=== PATIENT | female | born 1980 | race Caucasian/White ===

== ENCOUNTER 2016-11-26 14:07 | Emergency (ER) | payer OTHER ==
[~2016-11-26] VITALS: Ht 162.5 cm; Wt 72.6 kg
[~2016-11-26 14:07] MED LIST: AUGMENTIN 875875 MG PO; CELEXA20 MG PO; HYDROCODONE BIT1 T11 PO; LAMICTAL ODT50 MG PO; LAMICTAL25 MG PO; SEROQUEL25 MG PO; SYNTHROID,LEV100 MCG PO; VIT D2 PO; WELLBUTRIN75 MG PO; ZOFRAN4 MG PO
[2016-11-26] MEDS ORDERED: IRON325 M2 PO (14:12)
[2016-11-26] MEDS ORDERED: AMBIEN5 MG PO (14:13)
[2016-11-26] MEDS ORDERED: ATIVAN0.5 MG PO (14:13)
[2016-11-26] MEDS ORDERED: CYCLOBENZAPRINE10 MG PO (16:20)
[2016-11-26] MEDS ORDERED: PREDNISONE50 MG PO (16:20)
== END 2016-11-26 16:24 | disposition home or self-care (01) ==
LOC: ED 14:07
DX: S00.83XA Contusion of other part of head, initial encounter (principal); S14.109A Unspecified injury at unspecified level of cervical spinal cord, initial encounter; F17.200 Nicotine dependence, unspecified, uncomplicated; W10.9XXA Fall (on) (from) unspecified stairs and steps, initial encounter; Y93.89 Activity, other specified; Y92.9 Unspecified place or not applicable; Y99.9 Unspecified external cause status

== ENCOUNTER → 2017-02-25 | Day surgery (SDC) | payer OTHER ==
[2017-02-20 09:23] VITALS: BP 120/67
[2017-02-25] VITALS (9 sets, daily range): BP systolic 108–148; BP diastolic 46–87
[~2017-02-25] VITALS: Ht 162.5 cm; Wt 74.8 kg
[~2017-02-25] MED LIST changes: +AMBIEN5 MG PO; +ATIVAN0.5 MG PO; +CYCLOBENZAPRINE10 MG PO; +IRON325 M2 PO; +LEVAQUIN500 M2 PO; +PERCOCET 325 MG1 TA7 PO; +PREDNISONE50 MG PO; +SYNTHROID,LEVO75 MCG PO; +VITAMIN D5000 UNIT PO
--- NOTE | ~2017-02-25 | O ---
[place], [place] OPERATIVE NOTE NAME: GILLIAN KHAN UNIT #: [id number] ROOM: DOCTOR: RAKESH DUENAS MD BIRTHDATE: [birth year] DOS: 02/25/2017 PREOPERATIVE DIAGNOSES: Chronic maxillary sinusitis, chronic ethmoid sinusitis. POSTOPERATIVE DIAGNOSES: Chronic maxillary sinusitis, chronic ethmoid sinusitis. PROCEDURES: Bilateral nasal endoscopy with maxillary antrostomy and bilateral anterior ethmoidectomy. SURGEON: Rakesh Duenas MD ANESTHESIA: General endotracheal. ESTIMATED BLOOD LOSS: 100 mL. COMPLICATIONS: None. PACKING: Merocel x 2. INDICATIONS: The patient is a 37-year-old white female with chronic sinusitis, who has requested endoscopic sinus surgery. She was taken to the operating room for bilateral maxillary antrostomy and bilateral anterior ethmoidectomy. DESCRIPTION OF PROCEDURE: Following induction of general endotracheal anesthesia, the patient was positioned supine on the OR table and draped in the standard fashion for sinus surgery. Both nasal cavities were decongested with topical 4% cocaine pledgets. Approximately 10 mL of 1% lidocaine with 1:100 epinephrine was injected into the middle turbinate and lateral nasal wall bilaterally. The left nasal cavity was addressed first. Using 0-degree endoscope, the patient was noted to have ostiomeatal complex obstruction and the uncinate process was taken down using a Hood elevator and endoscopic upbiting forceps. The natural sinus ostia was identified and enlarged using a curved suction. Some thickened mucosal tissue was removed from the natural sinus ostia. Next, the anterior ethmoidectomy was performed using endoscopic instrumentation. The procedure was repeated on the right nasal cavity without difficulty. There was no significant bleeding at the end of the case. Estimated blood loss was 100 mL. The nasal cavities were packed with Merocel bilaterally. The patient was awakened, extubated and transported to PACU in satisfactory condition. [place], [place] OPERATIVE NOTE NAME: GILLIAN KHAN UNIT #: [id number] ROOM: DOCTOR: RAKESH DUENAS MD BIRTHDATE: [birth year] RAKESH DUENAS MD CM:RAVIECORD:OPERATIVE NOTE 1109 1135 RAKESH DUENAS MD 02/26/17 1136 interface
== END | disposition home or self-care (01) ==
LOC: SDC 01-21 08:45
DX: J32.2 Chronic ethmoidal sinusitis (principal); J32.0 Chronic maxillary sinusitis; F32.9 Major depressive disorder, single episode, unspecified; E03.9 Hypothyroidism, unspecified; Z87.01 Personal history of pneumonia (recurrent); F41.9 Anxiety disorder, unspecified; Z83.3 Family history of diabetes mellitus; Z82.3 Family history of stroke; Z82.49 Family history of ischemic heart disease and other diseases of the circulatory system; F17.210 Nicotine dependence, cigarettes, uncomplicated

== ENCOUNTER → 2017-04-18 | Outpatient (CLI) | payer OTHER ==
[2017-04-18 16:29] LABS: BASO # 0.1 10*3/uL (0.0-0.1); BASO % 0.7 % (0.0-1.0); EOS # 0.2 10*3/uL (0.0-0.4); HEMATOCRIT 41.5 % (37.0-47.0); LYMPH # 2.8 10*3/uL (1.3-4.4); LYMPH % 27.9 % (27.0-41.0); MEAN CELL VOLUME 89.4 fl (81.0-99.0); MEAN CORPUSCULAR HGB 30.2 pg (27.0-31.0); MEAN CORPUSCULAR HGB CONC 33.7 g/dl (33.0-37.0); MONO # 0.6 10*3/uL (0.1-1.0); MONO % 5.8 % (3.0-9.0); NEUT # 6.4 10*3/uL (2.3-7.9); NEUT % 63.3 % (47.0-73.0); PLATELET COUNT AUTOMATED 280 10*3/uL (130-400); RED BLOOD COUNT 4.64 10*6/uL (4.10-5.10); RED CELL DISTRI WIDTH 13.4 % (0-14.5); WHITE BLOOD COUNT 10.1 10*3/uL (4.8-10.8)
== END ==
LOC: LAB 16:19
PROVIDERS: Nurse Practitioner Family
DX: E03.9 Hypothyroidism, unspecified (principal)

== ENCOUNTER → 2017-10-13 | Outpatient (CLI) | payer OTHER ==
[2017-10-13 20:40] LABS: BASO # 0.1 10*3/uL (0.0-0.1); BASO % 0.8 % (0.0-1.0); EOS # 0.3 10*3/uL (0.0-0.4); EOS % 2.7 % (1.0-4.0); HEMATOCRIT 39.9 % (37.0-47.0); HEMOGLOBIN 13.3 g/dl (12.0-16.0); LYMPH # 3.3 10*3/uL (1.3-4.4); LYMPH % 30.4 % (27.0-41.0); MEAN CELL VOLUME 87.9 fl (81.0-99.0); MEAN CORPUSCULAR HGB 29.3 pg (27.0-31.0); MEAN CORPUSCULAR HGB CONC 33.3 g/dl (33.0-37.0); MEAN PLATELET VOLUME 10.4 fl (9.6-12.3); MONO # 0.7 10*3/uL (0.1-1.0); MONO % 6.2 % (3.0-9.0); NEUT # 6.4 10*3/uL (2.3-7.9); NEUT % 59.6 % (47.0-73.0); PLATELET COUNT AUTOMATED 265 10*3/uL (130-400); RED BLOOD COUNT 4.54 10*6/uL (4.10-5.10); WHITE BLOOD COUNT 10.8 10*3/uL (4.8-10.8)
[2017-10-13 20:58] LABS: ALBUMIN 3.8 gm/dl (3.1-4.5); ALKALINE PHOSPHATASE 66 U/L (45-117); BUN 13 mg/dl (7-24); CHLORIDE 105 mmol/L (98-107); CHOLESTEROL 249 mg/dL (<200); CREATININE 0.72 mg/dL (0.55-1.02); HDL CHOLESTEROL 48 mg/dl (40-60); LDL CHOLESTEROL 165 mg/dL (9-159); POTASSIUM 3.5 mmol/L (3.5-5.1); SGOT/AST 11 IU/L (3-35); SGPT/ALT 23 U/L (12-78); SODIUM 141 mmol/L (136-145); TOTAL PROTEIN 7.5 gm/dL (6.4-8.2); TRIGLYCERIDES 182 mg/dl (<150); VLDL CHOLESTEROL 36 mg/dL (6-40)
== END | disposition home or self-care (01) ==
LOC: LAB 20:12
PROVIDERS: Nurse Practitioner Family
DX: E03.9 Hypothyroidism, unspecified (principal); F41.9 Anxiety disorder, unspecified

== ENCOUNTER 2017-11-25 22:04 | Emergency (ER) | payer OTHER ==
[~2017-11-25] VITALS: Ht 162.5 cm; Wt 77.1 kg
[2017-11-25 22:44] LABS: BASO # 0.1 10*3/uL (0.0-0.1); BASO % 0.9 % (0.0-1.0); EOS # 0.4 10*3/uL (0.0-0.4); HEMATOCRIT 37.9 % (37.0-47.0); HEMOGLOBIN 12.4 g/dl (12.0-16.0); LYMPH % 34.1 % (27.0-41.0); MEAN CELL VOLUME 86.9 fl (81.0-99.0); MEAN CORPUSCULAR HGB 28.4 pg (27.0-31.0); MEAN CORPUSCULAR HGB CONC 32.7 g/dl (33.0-37.0); MEAN PLATELET VOLUME 10.3 fl (9.6-12.3); MONO # 0.7 10*3/uL (0.1-1.0); MONO % 7.5 % (3.0-9.0); NEUT # 4.6 10*3/uL (2.3-7.9); NEUT % 53.2 % (47.0-73.0); PLATELET COUNT AUTOMATED 285 10*3/uL (130-400); RED BLOOD COUNT 4.36 10*6/uL (4.10-5.10); RED CELL DISTRI WIDTH 13.6 % (0-14.5); WHITE BLOOD COUNT 8.7 10*3/uL (4.8-10.8)
[2017-11-25 23:00] LABS: ACT PARTIAL THROMBO TIME 28.3 SECONDS (20.8-31.5)
[2017-11-25 23:03] LABS: ALBUMIN 3.9 gm/dl (3.1-4.5); ALKALINE PHOSPHATASE 72 U/L (45-117); BUN 13 mg/dl (7-24); CHLORIDE 103 mmol/L (98-107); CREATININE 0.63 mg/dL (0.55-1.02); POTASSIUM 3.5 mmol/L (3.5-5.1); SGOT/AST 21 IU/L (3-35); SGPT/ALT 29 U/L (12-78); SODIUM 137 mmol/L (136-145); TOTAL PROTEIN 7.3 gm/dL (6.4-8.2)
[2017-11-25 23:24] LABS: TROPONIN I < 0.015 ng/ml (<0.045)
[2017-11-26] MEDS ORDERED: ZITHROMAX250 MG PO (00:16)
== END 2017-11-26 01:14 | disposition home or self-care (01) ==
LOC: ED 22:04
PROVIDERS: Emergency Medicine Emergency Medical Services
DX: J18.9 Pneumonia, unspecified organism (principal); J32.9 Chronic sinusitis, unspecified; F17.200 Nicotine dependence, unspecified, uncomplicated; Z79.899 Other long term (current) drug therapy

== ENCOUNTER → 2017-12-23 | Outpatient (CLI) | payer OTHER ==
[~2017-12-23] MED LIST changes: +ZITHROMAX250 MG PO
[2017-12-23 19:05] LABS: BASO # 0.1 10*3/uL (0.0-0.1); BASO % 1.2 % (0.0-1.0); EOS # 0.4 10*3/uL (0.0-0.4); EOS % 4.8 % (1.0-4.0); HEMATOCRIT 38.5 % (37.0-47.0); HEMOGLOBIN 12.4 g/dl (12.0-16.0); LYMPH % 37.1 % (27.0-41.0); MEAN CELL VOLUME 85.7 fl (81.0-99.0); MEAN CORPUSCULAR HGB 27.6 pg (27.0-31.0); MEAN CORPUSCULAR HGB CONC 32.2 g/dl (33.0-37.0); MONO # 0.6 10*3/uL (0.1-1.0); NEUT # 4.1 10*3/uL (2.3-7.9); NEUT % 49.7 % (47.0-73.0); PLATELET COUNT AUTOMATED 291 10*3/uL (130-400); RED BLOOD COUNT 4.49 10*6/uL (4.10-5.10); RED CELL DISTRI WIDTH 13.8 % (0-14.5); WHITE BLOOD COUNT 8.2 10*3/uL (4.8-10.8)
== END | disposition home or self-care (01) ==
LOC: LAB 18:26
PROVIDERS: Nurse Practitioner Primary Care
DX: I10 Essential (primary) hypertension (principal); E66.09 Other obesity due to excess calories

== ENCOUNTER 2018-02-09 22:25 | Inpatient (IN) | payer OTHER ==
[~2018-02-09] VITALS: Ht 162.5 cm; Wt 77.3 kg
--- NOTE | ~2018-02-09 | O ---
[place], [place] OPERATIVE NOTE NAME: GILLIAN KHAN UNIT #: [id number] ROOM: 506 DOCTOR: CHRISTOPHER MORENO MD BIRTHDATE: [birth year] DOS: 02/11/2018 GASTROENDOSCOPIC REPORT INDICATIONS: A 37-year-old patient who presented with chief complaint of hematemesis, nausea, vomiting, and eventually seek medical attention and undergone investigation of the above. PROCEDURE: Today's procedure part of investigation is panendoscopy plus biopsy. PREMEDICATION: Versed and Diprivan. SCOPE: Olympus forward-viewing gastroscope Q10 video. REPORT: After putting the patient in left lateral position and application of lubricant to the scope, the scope was introduced. Thereafter, under direct visualization, advanced through the length of esophagus without difficulty. Gastric pouch was entered. Multiple antral erosions secondary to nonsteroidal anti-inflammatory was seen. Duodenum consistent with duodenitis in bulb and second part, photographed. Biopsies from antrum was obtained. Air was suctioned out after GI reflection to cardia and evaluation of the proximal stomach, which is consistent also with gastritis. The patient tolerated the procedure well. IMPRESSION: Multiple antral erosions secondary to nonsteroidal anti-inflammatory, duodenitis, gastritis. PLAN AND DISCUSSION: Protonix 40 mg 1 every day. The patient advised to abstain from avid intake of nonsteroidal anti-inflammatory limiting only small mg to p.r.n. use as well was advised to abstain from smoking and follow up as outpatient. Thank you very much indeed for your kind referral. [place], [place] OPERATIVE NOTE NAME: GILLIAN KHAN UNIT #: [id number] ROOM: 506 DOCTOR: CHRISTOPHER MORENO MD BIRTHDATE: [birth year] CHRISTOPHER MORENO MD CM:OPRECORD:OPERATIVE NOTE 1519 1639 CHRISTOPHER MORENO MD 02/11/18 1639 interface
--- NOTE | ~2018-02-09 | CON ---
[place], [place] REPORT OF CONSULTATION NAME: GILLIAN KHAN UNIT #: [id number] ROOM: 506 DOCTOR: TIFFANIE GARCIASCHRISTOPHER BIRTHDATE: [birth year] DOS: 02/11/2018 HISTORY OF PRESENT ILLNESS: A 37-year-old patient who presented with chief complaint of nausea, epigastric distress and eventually hematemesis and I have been called in this regard for assessment of the above. Comprehensive metabolic panel, GFR within normal limits. Liver function test normal. Electrolytes balanced. CBC initially, H and H of 11 and 35 with platelet count of 278. Troponin was 0.05, which is within normal limits. Comprehensive metabolic panel was reassessed again, no acute findings otherwise. Her urine negative. PAST MEDICAL HISTORY: Anxiety, sinusitis, anemia in the past. PAST SURGICAL HISTORY: ENT management, lower back surgery. SOCIAL HISTORY: Smoker, nonalcohol consumer. FAMILY HISTORY: Noncontributory except diabetes, coronary artery disease, unrelated to her presentation. ALLERGIES: No known medications. MEDICATIONS: Medication list has been reviewed including iron supplementation as well as taken 4-8 tablets of nonsteroidal anti-inflammatory [id number] product. REVIEW OF SYSTEMS: HEENT: Denies double vision or blurred vision. RESPIRATORY: Shortness of breath. CARDIOVASCULAR: Denies chest pain. DIGESTIVE SYSTEM: Nausea, vomiting. PHYSICAL EXAMINATION: VITAL SIGNS: Stable, nontoxic patient. HEENT: Head normocephalic, nontraumatic. Eyes: Pupils round, reactive. Sclerae nonicteric. Mouth and buccal mucosa benign. NECK: Supple, no thyromegaly, no cervical lymphadenopathy. CHEST: Symmetric anatomy, equal expansion. No wheeze, no rhonchi. HEART: Normal sinus rhythm, no gallop, no murmur. ABDOMEN: Soft. No hepato-organomegaly. Bowel sounds present. EXTREMITIES: No cyanosis, no pedal edema. NEUROLOGIC: Alert, oriented to time, place, person. LABORATORY DATA: Reviewed. Records reviewed. Data reviewed. IMPRESSION: Ruling out peptic ulcer disease secondary to nonsteroidal anti-inflammatory, ruling out hiatal hernia as a cause of hematemesis. Other adjunctive diagnoses, chronic lower back pain, history of anxiety, and depression. [place], [place] REPORT OF CONSULTATION NAME: GILLIAN KHAN UNIT #: [id number] ROOM: 506 DOCTOR: TIFFANIE GARCIAS,CHRISTOPHER BIRTHDATE: [birth year] PLAN AND DISCUSSION: We are going to organize an EGD today, chronic anemia is known. Workup in progress. CHRISTOPHER MORENO MD CM:CONSTR:REPORT OF CONSULTATION 1504 02/12/18 0543 interface
[2018-02-09 22:30] VITALS: BP 129/80
[2018-02-09 22:52] LABS: BASO # 0.1 10*3/uL (0.0-0.1); BASO % 1.1 % (0.0-1.0); EOS # 0.4 10*3/uL (0.0-0.4); EOS % 4.9 % (1.0-4.0); HEMATOCRIT 35.3 % (37.0-47.0); HEMOGLOBIN 11.6 g/dl (12.0-16.0); LYMPH # 2.7 10*3/uL (1.3-4.4); LYMPH % 30.6 % (27.0-41.0); MEAN CORPUSCULAR HGB 26.6 pg (27.0-31.0); MEAN CORPUSCULAR HGB CONC 32.9 g/dl (33.0-37.0); MEAN PLATELET VOLUME 10.4 fl (9.6-12.3); MONO # 0.5 10*3/uL (0.1-1.0); MONO % 6.1 % (3.0-9.0); NEUT # 5.1 10*3/uL (2.3-7.9); NEUT % 57.1 % (47.0-73.0); PLATELET COUNT AUTOMATED 278 10*3/uL (130-400); RED BLOOD COUNT 4.36 10*6/uL (4.10-5.10); WHITE BLOOD COUNT 8.9 10*3/uL (4.8-10.8)
[2018-02-09 23:12] LABS: ALBUMIN 3.7 gm/dl (3.1-4.5); ALKALINE PHOSPHATASE 70 U/L (45-117); BUN 15 mg/dl (7-24); CHLORIDE 105 mmol/L (98-107); CREATININE 0.93 mg/dL (0.55-1.02); LIPASE 130 U/L (73-393); POTASSIUM 3.5 mmol/L (3.5-5.1); SGOT/AST 14 IU/L (3-35); SGPT/ALT 18 U/L (12-78); SODIUM 137 mmol/L (136-145); TOTAL PROTEIN 7.2 gm/dL (6.4-8.2)
[2018-02-09 23:46] VITALS: BP 110/74
[2018-02-10] VITALS (9 sets, daily range): BP systolic 100–127; BP diastolic 56–74
[2018-02-10 04:12] LABS: BASO # 0.1 10*3/uL (0.0-0.1); BASO % 1.2 % (0.0-1.0); EOS # 0.4 10*3/uL (0.0-0.4); EOS % 5.7 % (1.0-4.0); HEMATOCRIT 35.2 % (37.0-47.0); HEMOGLOBIN 11.5 g/dl (12.0-16.0); LYMPH # 2.7 10*3/uL (1.3-4.4); LYMPH % 35.5 % (27.0-41.0); MEAN CELL VOLUME 82.1 fl (81.0-99.0); MEAN CORPUSCULAR HGB 26.8 pg (27.0-31.0); MEAN CORPUSCULAR HGB CONC 32.7 g/dl (33.0-37.0); MEAN PLATELET VOLUME 10.3 fl (9.6-12.3); MONO # 0.5 10*3/uL (0.1-1.0); MONO % 6.4 % (3.0-9.0); NEUT # 3.9 10*3/uL (2.3-7.9); NEUT % 50.9 % (47.0-73.0); PLATELET COUNT AUTOMATED 268 10*3/uL (130-400); RED BLOOD COUNT 4.29 10*6/uL (4.10-5.10); RED CELL DISTRI WIDTH 14.9 % (0-14.5); WHITE BLOOD COUNT 7.7 10*3/uL (4.8-10.8)
[2018-02-10 04:30] LABS: ALBUMIN 3.4 gm/dl (3.1-4.5); BUN 11 mg/dl (7-24); CHLORIDE 107 mmol/L (98-107); CHOLESTEROL 227 mg/dL (<200); CREATININE 0.75 mg/dL (0.55-1.02); PHOSPHOROUS 3.6 mg/dL (2.5-4.9); POTASSIUM 3.6 mmol/L (3.5-5.1); SGOT/AST 14 IU/L (3-35); SGPT/ALT 14 U/L (12-78); SODIUM 141 mmol/L (136-145); TOTAL PROTEIN 6.7 gm/dL (6.4-8.2); TRIGLYCERIDES 121 mg/dl (<150); VLDL CHOLESTEROL 24 mg/dL (6-40)
[2018-02-10 04:31] LABS: ALKALINE PHOSPHATASE 58 U/L (45-117); HDL CHOLESTEROL 40 mg/dl (40-60); LDL CHOLESTEROL 163 mg/dL (9-159)
[2018-02-10 07:08] LABS: VITAMIN D, 25-HYDROXY 23.7 ng/mL (30-100)
[2018-02-10 07:34] LABS: BILIRUBIN NEGATIVE (NEGATIVE); BLOOD 3+ (NEGATIVE); CLARITY CLOUDY (CLEAR); COLOR RED (YELLOW); GLUCOSE NEGATIVE (NEGATIVE); KETONE NEGATIVE (NEGATIVE); LEUKO ESTERASE TRACE (NEGATIVE); NITRITE NEGATIVE (NEGATIVE); SPECIFIC GRAVITY <= 1.005 (1.005-1.030); UROBILINOGEN 0.2 E.U./dl (0.2-1.0)
[2018-02-10 10:02] LABS: RBC TNTC rbc/hpf (0-2)
[2018-02-11] VITALS: BP 115/63
[2018-02-11 06:29] LABS: BASO # 0.1 10*3/uL (0.0-0.1); BASO % 1.1 % (0.0-1.0); EOS # 0.4 10*3/uL (0.0-0.4); EOS % 5.3 % (1.0-4.0); HEMATOCRIT 32.9 % (37.0-47.0); HEMOGLOBIN 10.5 g/dl (12.0-16.0); LYMPH # 2.3 10*3/uL (1.3-4.4); LYMPH % 30.5 % (27.0-41.0); MEAN CELL VOLUME 82.3 fl (81.0-99.0); MEAN CORPUSCULAR HGB 26.3 pg (27.0-31.0); MEAN CORPUSCULAR HGB CONC 31.9 g/dl (33.0-37.0); MEAN PLATELET VOLUME 10.8 fl (9.6-12.3); MONO # 0.5 10*3/uL (0.1-1.0); MONO % 6.3 % (3.0-9.0); NEUT # 4.2 10*3/uL (2.3-7.9); NEUT % 56.5 % (47.0-73.0); PLATELET COUNT AUTOMATED 252 10*3/uL (130-400); WHITE BLOOD COUNT 7.4 10*3/uL (4.8-10.8)
[2018-02-11 06:58] LABS: BUN 11 mg/dl (7-24); CHLORIDE 111 mmol/L (98-107); CREATININE 0.63 mg/dL (0.55-1.02); IRON 21 ug/dL (50-170); POTASSIUM 3.8 mmol/L (3.5-5.1); SODIUM 143 mmol/L (136-145); TOTAL IRON BINDING CAPACITY 343 ug/dl (250-450)
[2018-02-11 08:00] VITALS: BP 114/68
[2018-02-11 14:28] VITALS: BP 119/74
[2018-02-11 15:15] VITALS: BP 118/73
[2018-02-11 15:30] VITALS: BP 116/71
[2018-02-11 15:45] VITALS: BP 114/72
[2018-02-11] MEDS ORDERED: PROTONIX40 MG PO (16:00)
[2018-02-11] MEDS ORDERED: FEOSOL325 MG PO (16:03)
== END 2018-02-11 16:25 | disposition home or self-care (01) | DRG 379 ==
LOC: ED 22:25 → 5E 02-10 00:02 → EDHOLD 02-10 00:02 → 5E 02-10 01:05
PROVIDERS: Internal Medicine Nephrology; Nurse Practitioner Family; Student in an Organized Health Care Education/Training Program
PROC: 0DB78ZX Excision of Stomach, Pylorus, Via Natural or Artificial Opening Endoscopic, Diagnostic (ICD-10-PCS; principal; 2018-02-11)
DX: K25.0 Acute gastric ulcer with hemorrhage (principal); E83.51 Hypocalcemia; K29.61 Other gastritis with bleeding; K29.81 Duodenitis with bleeding; F32.9 Major depressive disorder, single episode, unspecified; G43.909 Migraine, unspecified, not intractable, without status migrainosus; F41.9 Anxiety disorder, unspecified; J32.9 Chronic sinusitis, unspecified; D72.824 Basophilia; D64.9 Anemia, unspecified; R73.9 Hyperglycemia, unspecified; E66.3 Overweight; M54.5 Low back pain; G89.29 Other chronic pain; T39.391A Poisoning by other nonsteroidal anti-inflammatory drugs [NSAID], accidental (unintentional), initial encounter; K21.9 Gastro-esophageal reflux disease without esophagitis; E03.9 Hypothyroidism, unspecified; Z83.3 Family history of diabetes mellitus; Z82.49 Family history of ischemic heart disease and other diseases of the circulatory system; Z82.3 Family history of stroke; Z83.6 Family history of other diseases of the respiratory system; Z82.61 Family history of arthritis; Z79.899 Other long term (current) drug therapy; Z71.6 Tobacco abuse counseling; Z72.0 Tobacco use; Y92.89 Other specified places as the place of occurrence of the external cause; Z68.29 Body mass index [BMI] 29.0-29.9, adult

== ENCOUNTER → 2018-07-03 | Outpatient (CLI) | payer OTHER ==
[~2018-07-03] MED LIST changes: +FEOSOL325 MG PO; +Motrin,Rufen800 MG PO; +PROTONIX40 MG PO
== END | disposition home or self-care (01) ==
LOC: RAD 13:20
DX: J43.9 Emphysema, unspecified (principal); R06.02 Shortness of breath; R07.89 Other chest pain

== ENCOUNTER 2018-09-11 11:26 | Emergency (ER) | payer OTHER ==
[~2018-09-11] VITALS: Ht 162.5 cm; Wt 61.2 kg
[~2018-09-11 11:26] MED LIST changes: -Motrin,Rufen800 MG PO
[2018-09-11] MEDS ORDERED: Motrin,Rufen800 MG PO (13:07)
== END 2018-09-11 13:33 | disposition home or self-care (01) ==
LOC: ED 11:26
DX: S16.1XXA Strain of muscle, fascia and tendon at neck level, initial encounter (principal); S80.02XA Contusion of left knee, initial encounter; S80.01XA Contusion of right knee, initial encounter; F17.200 Nicotine dependence, unspecified, uncomplicated; Z98.890 Other specified postprocedural states; Z79.899 Other long term (current) drug therapy; V49.88XA Car occupant (driver) (passenger) injured in other specified transport accidents, initial encounter; Y93.89 Activity, other specified; Y92.413 State road as the place of occurrence of the external cause; Y99.9 Unspecified external cause status

== ENCOUNTER → 2019-03-22 | Outpatient (CLI) | payer OTHER ==
[~2019-03-22] MED LIST changes: +Motrin,Rufen800 MG PO
--- NOTE | ~2019-03-22 | ST ---
[place], [place] EXERCISE STRESS TEST REPORT NAME: [id number] UNIT #: [id number] ROOM: DOCTOR: SABINA FROST MD BIRTHDATE: [birth year] DOS: 03/22/2019 REFERRING PHYSICIAN: Dr. Sabina Frost. INDICATION: Central chest pain. The patient underwent standard Ricky protocol stress EKG. Baseline EKG is normal sinus, nonspecific ST-T wave changes, heart rate 67 with blood pressure 118/64. The patient achieved a maximum heart rate of 158 with a peak blood pressure of 140/66. The patient's maximum heart rate was 158, which represents 80% of maximum predicted. The patient exercised for 9 minutes. The patient had no chest pain, no EKG changes of significance. No arrhythmias. SUMMARY OF FINDINGS: 1. The patient with a negative exercise treadmill stress test to an average workload. 2. Ramirez Treadmill score of 9 portending a low risk prognosis. 3. No chest pain was noted. SABINA FROST MD CM:STRESS:EXERCISE STRESS TEST REPORT 1420 0056 SABINA FROST MD
--- NOTE | 2019-03-22 12:26 | NUR ---
INFORMED SIGNED CONSENT OBTAINED FOR A STANDARD GXT WITH DR SERRA. RESTING EKG NSR HR 67 BP 118/68 IN SUPINE POSTION, STANDING HR 93 BP 112/62. PT COMPLETED 9:00 MINUTES OF A JEZ PROTOCOL WITH PT COMPLETING STAGE III AT 3.4 MPH AND A 14% GRADE. PT REACHED A PEAK HR OF 158 WHICH REPRESENTS 88% OF PREDICTED MAXIMUM AND A PEAK BP OF 140/66. NO ARRHYTHMIAS NOTED.NON DIAGNOSTIC ST CHANGES SEEN. LAST RECOVERY OF 91 BP 114/70. PT IN STABLE CONDITION, HOME TO SELF.
== END | disposition home or self-care (01) ==
LOC: CARD 00:28
DX: R00.1 Bradycardia, unspecified (principal); R07.89 Other chest pain

== ENCOUNTER → 2019-08-11 | Outpatient (CLI) | payer OTHER ==
--- NOTE | ~2019-08-11 | EKG ---
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
== END | disposition home or self-care (01) ==
LOC: CARD 16:13
DX: R00.2 Palpitations (principal); M25.50 Pain in unspecified joint; R04.2 Hemoptysis

== ENCOUNTER 2019-09-20 13:33 | Emergency (ER) | payer OTHER ==
[~2019-09-20] VITALS: Ht 162.5 cm; Wt 63.5 kg
--- NOTE | ~2019-09-20 | EKG ---
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
[2019-09-20 14:21] LABS: BASO # 0.1 10*3/uL (0.0-0.1); EOS # 0.2 10*3/uL (0.0-0.4); EOS % 2.3 % (1.0-4.0); HEMATOCRIT 38.9 % (37.0-47.0); HEMOGLOBIN 12.4 g/dl (12.0-16.0); LYMPH # 2.8 10*3/uL (1.3-4.4); LYMPH % 29.1 % (27.0-41.0); MEAN CELL VOLUME 79.7 fl (81.0-99.0); MEAN CORPUSCULAR HGB 25.4 pg (27.0-31.0); MEAN CORPUSCULAR HGB CONC 31.9 g/dl (33.0-37.0); MEAN PLATELET VOLUME 10.4 fl (9.6-12.3); MONO # 0.7 10*3/uL (0.1-1.0); NEUT # 5.8 10*3/uL (2.3-7.9); NEUT % 60.3 % (47.0-73.0); PLATELET COUNT AUTOMATED 283 10*3/uL (130-400); RED BLOOD COUNT 4.88 10*6/uL (4.10-5.10); RED CELL DISTRI WIDTH 15.9 % (0-14.5); WHITE BLOOD COUNT 9.7 10*3/uL (4.8-10.8)
[2019-09-20 14:39] LABS: ALBUMIN 4.2 gm/dl (3.1-4.5); ALKALINE PHOSPHATASE 71 U/L (45-117); BUN 10 mg/dl (7-24); CHLORIDE 105 mmol/L (98-107); CREATININE 0.76 mg/dL (0.55-1.02); POTASSIUM 3.3 mmol/L (3.5-5.1); SGOT/AST 12 IU/L (3-35); SGPT/ALT 20 U/L (12-78); SODIUM 137 mmol/L (136-145); TOTAL PROTEIN 8.3 gm/dL (6.4-8.2)
== END 2019-09-20 16:46 | disposition home or self-care (01) ==
LOC: ED 13:33
PROVIDERS: Nurse Practitioner Family
DX: G44.209 Tension-type headache, unspecified, not intractable (principal); F41.9 Anxiety disorder, unspecified; H53.149 Visual discomfort, unspecified; F32.9 Major depressive disorder, single episode, unspecified; E03.9 Hypothyroidism, unspecified; F17.200 Nicotine dependence, unspecified, uncomplicated; Z98.890 Other specified postprocedural states; Z79.899 Other long term (current) drug therapy

== ENCOUNTER 2019-11-13 09:53 | Emergency (ER) | payer OTHER ==
[~2019-11-13] VITALS: Ht 162.5 cm; Wt 61.2 kg
[2019-11-13] MEDS ORDERED: NORCO 5-325 TA1 EACH PO (13:07)
== END 2019-11-13 13:45 | disposition home or self-care (01) ==
LOC: ED 09:53
DX: S62.397A Other fracture of fifth metacarpal bone, left hand, initial encounter for closed fracture (principal); E03.9 Hypothyroidism, unspecified; Z79.899 Other long term (current) drug therapy; Z98.890 Other specified postprocedural states; Z87.891 Personal history of nicotine dependence; V89.2XXA Person injured in unspecified motor-vehicle accident, traffic, initial encounter; Y93.I9 Activity, other involving external motion; Y92.093 Driveway of other non-institutional residence as the place of occurrence of the external cause; Y99.8 Other external cause status

== ENCOUNTER → 2020-07-26 | Outpatient (CLI) | payer OTHER ==
[~2020-07-26] MED LIST changes: +NORCO 5-325 TA1 EACH PO
== END | disposition home or self-care (01) ==
LOC: COVID19 14:24
PROVIDERS: ATTEND Family Medicine
DX: R50.9 Fever, unspecified (principal); J02.9 Acute pharyngitis, unspecified; H92.03 Otalgia, bilateral; Z20.828 Contact with and (suspected) exposure to other viral communicable diseases

== ENCOUNTER 2020-10-30 17:17 | Emergency (ER) | payer OTHER ==
[~2020-10-30] VITALS: Ht 162.5 cm; Wt 90.7 kg
[2020-10-30] MEDS ORDERED: NAPROSYN500 MG PO (20:19)
== END 2020-10-30 20:25 | disposition home or self-care (01) ==
LOC: ED 17:17
DX: S93.601A Unspecified sprain of right foot, initial encounter (principal); Z79.899 Other long term (current) drug therapy; W18.39XA Other fall on same level, initial encounter; Y93.89 Activity, other specified; Y92.89 Other specified places as the place of occurrence of the external cause; Y99.8 Other external cause status

== ENCOUNTER → 2020-11-23 | Outpatient (CLI) | payer OTHER ==
[~2020-11-23] MED LIST changes: +NAPROSYN500 MG PO
== END | disposition home or self-care (01) ==
LOC: MAMMO 07:57
PROVIDERS: ATTEND Family Medicine
DX: R92.1 Mammographic calcification found on diagnostic imaging of breast (principal)

== ENCOUNTER → 2021-01-05 | Outpatient (CLI) | payer OTHER | END | disposition home or self-care (01) | LOC: LAB 17:13 | PROVIDERS: ATTEND Internal Medicine Endocrinology, Diabetes & Metabolism | DX: E03.9 Hypothyroidism, unspecified (principal) ==

== ENCOUNTER → 2022-01-14 | Outpatient (CLI) | payer OTHER ==
[2022-01-14 09:41] LABS: BASO # 0.1 10*3/uL (0.0-0.1); BASO % 1.1 % (0.0-1.0); EOS # 0.3 10*3/uL (0.0-0.4); EOS % 4.1 % (1.0-4.0); HEMATOCRIT 41.6 % (37.0-47.0); LYMPH # 2.9 10*3/uL (1.3-4.4); LYMPH % 36.8 % (27.0-41.0); MEAN CELL VOLUME 90.4 fl (81.0-99.0); MEAN CORPUSCULAR HGB 29.1 pg (27.0-31.0); MEAN CORPUSCULAR HGB CONC 32.2 g/dl (33.0-37.0); MEAN PLATELET VOLUME 10.5 fl (9.6-12.3); MONO # 0.4 10*3/uL (0.1-1.0); MONO % 5.5 % (3.0-9.0); NEUT # 4.2 10*3/uL (2.3-7.9); NEUT % 52.2 % (47.0-73.0); PLATELET COUNT AUTOMATED 236 10*3/uL (130-400); RED CELL DISTRI WIDTH 14.2 % (0-14.5)
[2022-01-14 10:03] LABS: BILIRUBIN Negative (Negative); BLOOD Negative (Negative); CLARITY Cloudy (Clear); COLOR Yellow (Yellow); GLUCOSE Negative (Negative); KETONE Negative (Negative); LEUKO ESTERASE 2+ (Negative); NITRITE Negative (Negative); UROBILINOGEN 0.2 E.U./dl (0.0-1.0)
[2022-01-14 10:43] LABS: CHLORIDE 104 mmol/L (98-107); POTASSIUM 3.7 mmol/L (3.5-5.1); SODIUM 138 mmol/L (136-145)
[2022-01-14 10:52] LABS: ALKALINE PHOSPHATASE 103 U/L (45-117); BUN 14 mg/dl (7-24); CREATININE 0.74 mg/dL (0.55-1.02); SGOT/AST 14 IU/L (3-35); SGPT/ALT 24 U/L (12-78); TOTAL PROTEIN 8.1 gm/dL (6.4-8.2)
[2022-01-14 11:17] LABS: FREE T4 0.53 ng/dl (0.76-1.46)
[2022-01-14 11:22] LABS: BACTERIA 4+; EPITHELIAL CELLS 16-20; WBC 16-20 wbc/hpf (0-5)
[2022-01-15 05:06] LABS: RHEUMATOID ARTHRITIS FACTOR 35.5 IU/mL (<14.0)
== END | disposition home or self-care (01) ==
LOC: LAB 09:04
PROVIDERS: Psychiatry & Neurology Psychiatry; ATTEND Family Medicine
DX: Z51.81 Encounter for therapeutic drug level monitoring (principal); F31.81 Bipolar II disorder; M25.561 Pain in right knee; G89.29 Other chronic pain; M13.0 Polyarthritis, unspecified

== ENCOUNTER → 2022-02-05 | Outpatient (CLI) | payer OTHER ==
[2022-02-05 09:43] LABS: BUN 14 mg/dl (7-24); CHLORIDE 108 mmol/L (98-107); CREATININE 0.75 mg/dL (0.55-1.02); SODIUM 139 mmol/L (136-145)
[2022-02-06 04:06] LABS: RHEUMATOID FACTOR 38.4 IU/mL (<14.0)
== END | disposition home or self-care (01) ==
LOC: LAB 08:58
PROVIDERS: ATTEND Family Medicine
DX: M13.0 Polyarthritis, unspecified (principal); R76.8 Other specified abnormal immunological findings in serum

== ENCOUNTER 2022-03-07 06:46 | Emergency (ER) | payer OTHER ==
[~2022-03-07] VITALS: Ht 162.5 cm; Wt 88.5 kg
== END 2022-03-07 08:15 | disposition home or self-care (01) ==
LOC: ED 06:46
DX: S63.502A Unspecified sprain of left wrist, initial encounter (principal); F17.200 Nicotine dependence, unspecified, uncomplicated; Z79.899 Other long term (current) drug therapy; Z98.890 Other specified postprocedural states; W18.39XA Other fall on same level, initial encounter; Y93.89 Activity, other specified; Y92.89 Other specified places as the place of occurrence of the external cause; Y99.8 Other external cause status

== ENCOUNTER 2022-06-17 17:40 | Inpatient (IN) | payer OTHER ==
[~2022-06-17] VITALS: Ht 167.6 cm; Wt 88.3 kg
[~2022-06-17 17:40] MED LIST changes: +AMBIEN10 M1 PO; -AMBIEN5 MG PO; -ATIVAN0.5 MG PO; +ATIVAN1 MG PO; -CELEXA20 MG PO; +CELEXA40 MG PO; +SYNTHROID,LEV175 MCG PO; -SYNTHROID,LEVO75 MCG PO
[2022-06-17 17:44] VITALS: BP 125/67
[2022-06-17 17:56] LABS: BILIRUBIN Negative (Negative); BLOOD Negative (Negative); CLARITY Clear (Clear); COLOR Yellow (Yellow); GLUCOSE Negative (Negative); KETONE Trace (Negative); LEUKO ESTERASE Negative (Negative); NITRITE Negative (Negative); PH 5.5 (4.5-8.0); UROBILINOGEN 0.2 E.U./dl (0.0-1.0)
[2022-06-17 18:03] LABS: URINE AMPHETAMINES < 1000 (1000ng/ml); URINE BARBITURATES < 200 (200ng/ml); URINE BENZODIAZEPINES > 200 (200ng/ml); URINE CANNABINOIDS (THC) < 50 (50ng/ml); URINE COCAINE < 300 (300ng/ml); URINE METHADONE < 300 (300ng/ml); URINE OPIATES < 300 (300ng/ml); URINE PHENCYCLIDINE < 25 (25ng/ml)
[2022-06-17 18:13] LABS: BASO # 0.1 10*3/uL (0.0-0.1); BASO % 0.6 % (0.0-1.0); EOS # 0.1 10*3/uL (0.0-0.4); EOS % 0.9 % (1.0-4.0); HEMATOCRIT 47.5 % (37.0-47.0); LYMPH # 1.3 10*3/uL (1.3-4.4); LYMPH % 12.3 % (27.0-41.0); MEAN CELL VOLUME 87.8 fl (81.0-99.0); MEAN CORPUSCULAR HGB CONC 33.1 g/dl (33.0-37.0); MEAN PLATELET VOLUME 10.2 fl (9.6-12.3); MONO # 0.6 10*3/uL (0.1-1.0); MONO % 5.6 % (3.0-9.0); NEUT # 8.7 10*3/uL (2.3-7.9); NEUT % 80.4 % (47.0-73.0); PLATELET COUNT AUTOMATED 241 10*3/uL (130-400); RED BLOOD COUNT 5.41 10*6/uL (4.10-5.10); RED CELL DISTRI WIDTH 14.4 % (0-14.5); WHITE BLOOD COUNT 10.8 10*3/uL (4.8-10.8)
[2022-06-17 18:20] VITALS: BP 117/63
[2022-06-17 18:51] LABS: ALKALINE PHOSPHATASE 113 U/L (45-117); BUN 10 mg/dl (7-24); CHLORIDE 106 mmol/L (98-107); CREATININE 0.96 mg/dL (0.55-1.02); SGOT/AST 37 IU/L (3-35); SGPT/ALT 25 U/L (12-78); SODIUM 142 mmol/L (136-145); TOTAL PROTEIN 7.7 gm/dL (6.4-8.2)
[2022-06-17 18:52] LABS: ACETAMINOPHEN (TYLENOL) < 5.0 ug/ml (10-30); ETHYL ALCOHOL < 3.0 mg/dl (<3)
[2022-06-17 18:54] VITALS: BP 120/85
[2022-06-17 18:58] LABS: BACTERIA 2+; EPITHELIAL CELLS 0-2; RBC 0-2 rbc/hpf (0-2); WBC 0-2 wbc/hpf (0-5)
[2022-06-17] MEDS ORDERED: LAMOTRIGINE150 MG PO (19:19)
[2022-06-17] MEDS ORDERED: ESTRADIOL1 MG PO (19:19)
[2022-06-17] MEDS ORDERED: LATU20TA PO (19:20)
[2022-06-17] MEDS ORDERED: PROGESTERONE100 M2 PO (19:21)
[2022-06-17 19:28] VITALS: BP 115/73
[2022-06-17 20:00] VITALS: BP 102/54
[2022-06-18] VITALS: BP 98/68
[2022-06-18 04:00] VITALS: BP 107/73
[2022-06-18 06:11] LABS: BASO # 0.1 10*3/uL (0.0-0.1); BASO % 0.6 % (0.0-1.0); EOS # 0.2 10*3/uL (0.0-0.4); EOS % 2.7 % (1.0-4.0); HEMATOCRIT 44.5 % (37.0-47.0); LYMPH # 1.9 10*3/uL (1.3-4.4); LYMPH % 24.2 % (27.0-41.0); MEAN CELL VOLUME 89.2 fl (81.0-99.0); MEAN CORPUSCULAR HGB 29.7 pg (27.0-31.0); MEAN CORPUSCULAR HGB CONC 33.3 g/dl (33.0-37.0); MEAN PLATELET VOLUME 10.4 fl (9.6-12.3); MONO # 0.5 10*3/uL (0.1-1.0); MONO % 5.9 % (3.0-9.0); NEUT # 5.2 10*3/uL (2.3-7.9); NEUT % 66.3 % (47.0-73.0); PLATELET COUNT AUTOMATED 223 10*3/uL (130-400); RED BLOOD COUNT 4.99 10*6/uL (4.10-5.10); RED CELL DISTRI WIDTH 14.6 % (0-14.5); WHITE BLOOD COUNT 7.9 10*3/uL (4.8-10.8)
[2022-06-18 06:35] LABS: BUN 11 mg/dl (7-24); CHLORIDE 109 mmol/L (98-107); CHOLESTEROL 237 mg/dL (<200); CREATININE 0.79 mg/dL (0.55-1.02); POTASSIUM 3.8 mmol/L (3.5-5.1); SGOT/AST 40 IU/L (3-35); SGPT/ALT 25 U/L (12-78); SODIUM 143 mmol/L (136-145); TRIGLYCERIDES 167 mg/dl (<150)
[2022-06-18 06:40] LABS: ALKALINE PHOSPHATASE 99 U/L (45-117); FREE T4 0.65 ng/dl (0.76-1.46); LDL CHOLESTEROL 152 mg/dL (9-159); THYROID STIM HORMONE (HS) 0.094 uIU/ml (0.358-4.75)
[2022-06-18 08:00] VITALS: BP 109/69
[2022-06-18] MEDS ORDERED: PROPRANOLOL HYD10 MG PO (09:23)
[2022-06-18 12:00] VITALS: BP 112/77
[2022-06-18 16:00] VITALS: BP 130/89
[2022-06-18 20:00] VITALS: BP 121/77
[2022-06-19] VITALS: BP 127/84
[2022-06-19 04:00] VITALS: BP 111/65
[2022-06-19 05:18] LABS: ALKALINE PHOSPHATASE 93 U/L (45-117); BUN 8 mg/dl (7-24); CHLORIDE 108 mmol/L (98-107); CREATININE 0.58 mg/dL (0.55-1.02); POTASSIUM 3.8 mmol/L (3.5-5.1); SGOT/AST 25 IU/L (3-35); SGPT/ALT 22 U/L (12-78); SODIUM 139 mmol/L (136-145); TOTAL PROTEIN 6.7 gm/dL (6.4-8.2)
[2022-06-19 06:29] LABS: BASO # 0.1 10*3/uL (0.0-0.1); BASO % 1.1 % (0.0-1.0); EOS # 0.4 10*3/uL (0.0-0.4); EOS % 4.7 % (1.0-4.0); HEMATOCRIT 43.1 % (37.0-47.0); LYMPH # 2.3 10*3/uL (1.3-4.4); LYMPH % 30.3 % (27.0-41.0); MEAN CELL VOLUME 88.1 fl (81.0-99.0); MEAN CORPUSCULAR HGB 29.2 pg (27.0-31.0); MEAN CORPUSCULAR HGB CONC 33.2 g/dl (33.0-37.0); MEAN PLATELET VOLUME 10.4 fl (9.6-12.3); MONO # 0.5 10*3/uL (0.1-1.0); MONO % 6.2 % (3.0-9.0); NEUT # 4.4 10*3/uL (2.3-7.9); NEUT % 57.4 % (47.0-73.0); PLATELET COUNT AUTOMATED 233 10*3/uL (130-400); RED BLOOD COUNT 4.89 10*6/uL (4.10-5.10); RED CELL DISTRI WIDTH 14.3 % (0-14.5); WHITE BLOOD COUNT 7.6 10*3/uL (4.8-10.8)
[2022-06-19 08:00] VITALS: BP 111/75
[2022-06-19 11:46] VITALS: BP 110/70
[2022-06-19 15:55] VITALS: BP 101/74
[2022-06-19 20:00] VITALS: BP 118/81
== END 2022-06-19 22:46 | DRG 918 ==
LOC: ED 17:40 → EDHOLD 18:45 → ICCU 18:45
PROVIDERS: Emergency Medicine; Internal Medicine; Student in an Organized Health Care Education/Training Program; ADMIT Emergency Medicine; ATTEND Emergency Medicine
DX: T42.4X4A Poisoning by benzodiazepines, undetermined, initial encounter (principal); R82.71 Bacteriuria; Z20.822 Contact with and (suspected) exposure to COVID-19; F41.9 Anxiety disorder, unspecified; G47.00 Insomnia, unspecified; E03.9 Hypothyroidism, unspecified; M06.9 Rheumatoid arthritis, unspecified; R73.9 Hyperglycemia, unspecified; F31.9 Bipolar disorder, unspecified; Y92.89 Other specified places as the place of occurrence of the external cause; Z83.3 Family history of diabetes mellitus; Z82.61 Family history of arthritis; Z82.3 Family history of stroke; Z82.49 Family history of ischemic heart disease and other diseases of the circulatory system

== ENCOUNTER → 2022-11-28 | Outpatient (CLI) | payer OTHER ==
[~2022-11-28] MED LIST changes: +ESTRADIOL1 MG PO; +LAMOTRIGINE150 MG PO; +LATU20TA PO; +PROGESTERONE100 M2 PO; +PROPRANOLOL HYD10 MG PO
[2022-11-28 09:42] LABS: BASO # 0.1 10*3/uL (0.0-0.1); BASO % 0.7 % (0.0-1.0); EOS # 0.3 10*3/uL (0.0-0.4); EOS % 2.5 % (1.0-4.0); HEMATOCRIT 41.8 % (37.0-47.0); LYMPH # 2.5 10*3/uL (1.3-4.4); LYMPH % 23.1 % (27.0-41.0); MEAN CELL VOLUME 96.3 fl (81.0-99.0); MEAN CORPUSCULAR HGB 31.3 pg (27.0-31.0); MEAN CORPUSCULAR HGB CONC 32.5 g/dl (33.0-37.0); MEAN PLATELET VOLUME 10.2 fl (9.6-12.3); MONO # 0.4 10*3/uL (0.1-1.0); MONO % 3.6 % (3.0-9.0); NEUT # 7.5 10*3/uL (2.3-7.9); NEUT % 69.5 % (47.0-73.0); PLATELET COUNT AUTOMATED 280 10*3/uL (130-400); RED BLOOD COUNT 4.34 10*6/uL (4.10-5.10); RED CELL DISTRI WIDTH 15.3 % (0-14.5); WHITE BLOOD COUNT 10.8 10*3/uL (4.8-10.8)
[2022-11-28 09:52] LABS: ALKALINE PHOSPHATASE 101 U/L (46-116); BUN 11 mg/dl (9-23); CHLORIDE 106 mmol/L (98-107); POTASSIUM 3.3 mmol/L (3.4-5.1); SGPT/ALT 62 U/L (10-49); TOTAL PROTEIN 7.8 gm/dL (6.0-8.0)
== END | disposition home or self-care (01) ==
LOC: LAB 09:00
PROVIDERS: ATTEND Internal Medicine Rheumatology
DX: M05.9 Rheumatoid arthritis with rheumatoid factor, unspecified (principal); Z79.899 Other long term (current) drug therapy

== ENCOUNTER → 2023-10-18 | Outpatient (CLI) | payer OTHER ==
[2023-10-18 09:15] LABS: BASO # 0.1 10*3/uL (0.0-0.1); BASO % 0.9 % (0.0-1.0); EOS # 0.3 10*3/uL (0.0-0.4); EOS % 2.9 % (1.0-4.0); LYMPH # 3.6 10*3/uL (1.3-4.4); MEAN CELL VOLUME 92.4 fl (81.0-99.0); MEAN CORPUSCULAR HGB 29.6 pg (27.0-31.0); MEAN PLATELET VOLUME 10.3 fl (9.6-12.3); MONO # 0.4 10*3/uL (0.1-1.0); MONO % 3.9 % (3.0-9.0); NEUT # 6.1 10*3/uL (2.3-7.9); NEUT % 57.9 % (47.0-73.0); PLATELET COUNT AUTOMATED 321 10*3/uL (130-400); RED BLOOD COUNT 4.87 10*6/uL (4.10-5.10); RED CELL DISTRI WIDTH 15.9 % (0-14.5); WHITE BLOOD COUNT 10.5 10*3/uL (4.8-10.8)
[2023-10-18 09:31] LABS: ALKALINE PHOSPHATASE 84 U/L (46-116); BUN 10 mg/dl (9-23); CHLORIDE 104 mmol/L (98-107); POTASSIUM 3.3 mmol/L (3.4-5.1); SGPT/ALT 53 U/L (5-49); TOTAL PROTEIN 8.7 gm/dL (6.0-8.0)
== END | disposition home or self-care (01) ==
LOC: LAB 08:31
PROVIDERS: ATTEND Internal Medicine Rheumatology
DX: M05.9 Rheumatoid arthritis with rheumatoid factor, unspecified (principal); Z79.899 Other long term (current) drug therapy

== ENCOUNTER 2024-11-27 08:27 | Emergency (ER) | payer SELFPAY ==
[~2024-11-27] VITALS: Ht 162.5 cm; Wt 97.5 kg
[2024-11-27] MEDS ORDERED: Acetaminophen/Oxycodone 5 MG/325 MG TABLET PO ONE (08:45)
[2024-11-27] MEDS ORDERED: IBUPROFEN 800 MG TAB PO ONE (09:05)
[2024-11-27] MEDS ORDERED: PERCOCET 5-3251 EACH PO (09:13)
== END 2024-11-27 09:36 | disposition home or self-care (01) ==
LOC: ED 08:27
DX: S52.531A Colles' fracture of right radius, initial encounter for closed fracture (principal); F31.9 Bipolar disorder, unspecified; F41.9 Anxiety disorder, unspecified; Z79.899 Other long term (current) drug therapy; Z98.890 Other specified postprocedural states; Z87.891 Personal history of nicotine dependence; X58.XXXA Exposure to other specified factors, initial encounter; Y93.89 Activity, other specified; Y92.89 Other specified places as the place of occurrence of the external cause; Y99.8 Other external cause status

== ENCOUNTER → 2025-10-14 | Outpatient (CLI) | payer BC ==
[~2025-10-14] MED LIST changes: +PERCOCET 5-3251 EACH PO; +Technetium Tc 99M Tetrofosmi 0.23 MG KIT IJ SCH
== END | disposition home or self-care (01) ==
LOC: CARD 01:30
PROVIDERS: ATTEND Nurse Practitioner Family
DX: R07.9 Chest pain, unspecified (principal)

== ENCOUNTER 2025-10-24 23:35 | Emergency (ER) | payer BC ==
[~2025-10-24] VITALS: Ht 162.5 cm; Wt 95.5 kg
[~2025-10-24 23:35] MED LIST changes: -Technetium Tc 99M Tetrofosmi 0.23 MG KIT IJ SCH
[2025-10-25 00:10] LABS: BASO # 0.1 10*3/uL (0.0-0.1); BASO % 0.7 % (0.0-1.0); EOS # 0.2 10*3/uL (0.0-0.4); EOS % 2.3 % (1.0-4.0); MEAN CELL VOLUME 86.6 fl (81.0-99.0); MEAN CORPUSCULAR HGB 28.7 pg (27.0-31.0); MEAN PLATELET VOLUME 11.0 fl (9.6-12.3); MONO # 0.3 10*3/uL (0.1-1.0); MONO % 3.3 % (3.0-9.0); NEUT # 5.1 10*3/uL (2.3-7.9); NEUT % 60.4 % (47.0-73.0); NUCLEATED RED BLOOD CELL 0.0 % (0.0-0.0); NUCLEATED RED BLOOD CELL 0.0 10*3/uL (0.0-0.0); PLATELET COUNT AUTOMATED 242 10*3/uL (130-400); RED CELL DISTRI WIDTH 15.1 % (0-14.5)
[2025-10-25 00:26] LABS: BUN 16 mg/dl (9-23)
[2025-10-25] MEDS ORDERED: LEVOTHYROXINE200 MC2 PO (00:49)
[2025-10-25] MEDS ORDERED: LIPITOR40 MG PO (00:49)
[2025-10-25] MEDS ORDERED: ASPIRIN ADULT L81 M1 PO (00:49)
[2025-10-25] MEDS ORDERED: POTASSIUM CHLORIDE 20 MEQ TAB PO ONE (00:50)
== END 2025-10-25 02:51 | disposition home or self-care (01) ==
LOC: ED 23:35
PROVIDERS: Internal Medicine
DX: R07.89 Other chest pain (principal); E87.6 Hypokalemia; R73.9 Hyperglycemia, unspecified; E78.5 Hyperlipidemia, unspecified; F41.9 Anxiety disorder, unspecified; E03.9 Hypothyroidism, unspecified; F31.9 Bipolar disorder, unspecified; Z87.891 Personal history of nicotine dependence; Z98.890 Other specified postprocedural states